=== PATIENT | female | born 1960 | race Caucasian/White ===

== ENCOUNTER 2022-03-28 10:07 | Emergency (ER) | payer OTHER ==
--- OUTSIDE RECORDS SUMMARY | 2022-03-28 10:13 | XMS REPORT | Continuity of Care Document ---
:1960 Author Organization [facility] [place] t Address [address] [place] [address] Care Team Providers Name Role Phone Homero Burnett Primary Care Physician DR GODWIN RIBERA Attending Clinician Unavailable Radiology Attending Clinician Unavailable RADIOLOGY Attending Clinician Unavailable EMILIANO THOMPSON Attending Clinician Unavailable Emiliano Thompson NP Attending Clinician DELL MONTALVO Attending Clinician Unavailable Dell Martinez Attending Clinician [phone] Memo Damon MD Attending Clinician MEMO DAMON Attending Clinician Unavailable Gwen Ingram MA Attending Clinician Unavailable Vinh Cedillo MD Attending Clinician [phone] Kendal Blanc MD Attending Clinician MD KENDAL BLANC Attending Clinician Unavailable DOROTHEA CURRIE Attending Clinician Unavailable Ugo Boles Attending Clinician Unavailable DR GODWIN RIBERA Admitting Clinician Unavailable KATHRYN ACUÑA Admitting Clinician Unavailable EMILIANO THOMPSON Admitting Clinician Unavailable KENDAL BLANC Admitting Clinician Unavailable MD KENDAL BLANC Admitting Clinician Unavailable Ugo Boles Admitting Clinician Unavailable Payers Payer Name Policy Type Policy Number Effective Date Expiration Date María carrizales [id number] 1959 00:00:00 [id number] 1959 00:00:00 SANDI SALDIVAR [id number] 2017 00:00:00 Problems Condition Condition Condition Status Onset Resolution Last Treating Co mments Source Name Details Category Date Date Treatment Clinician Date Shortness Shortness Disease Active 2020-07 [facility] breath [facility] Anxiety Anxiety Disease Active [facility] and and 01-29 [place] [facility] Hyperchole Hyperchole Disease Active U nivers sterolemia sterolemia 01-29 it y of 00:00: [address] Hypothyroi Hypothyroi Disease Active U nivers d d 01-29 ity of 00:00: [address] Allergies, Adverse Reactions, Alerts Allergy Allergy Status Severity Reaction(s) Onset Inactive Treating Comm ents Source Name Type Date Date Clinician No Known DA Active [facility] ([facility]F/LI V/SA) NO KNOWN Drug Active Univers ALLERGIE Class ity of S [facility] Social History Social Habit Start Date Stop Date Quantity Comments Source History [facility] University o f Alcohol Std Drinks [facility] History [facility] o f Alcohol [facility]inge [facility] Exposure to Not sure [place] of SARS-CoV-2 (event) [facility] History of tobacco Cigarette Smoker University of use [facility] Alcohol intake 2021-10-08 2021-10-08 0 /d University of 00:00:00 00:00:00 [facility] Alcohol Comment 2016-01-30 2016-01-30 rarely Universit y of 00:00:00 00:00:00 [facility] Cigarettes smoked 2016-01-30 2016-01-30 Univers ity of current (pack per 00:00:00 00:00:00 [facility] ) - Reported Branch Tobacco use and 2016-01-30 2016-01-30 Never used Universit y of exposure 00:00:00 00:00:00 [facility] Sex Ass[birth year] At [birth year] [facility] 00:[facility] Smoking Status Start Date Stop Date Source Tobacco smoking consumption Meth [facility] unknown Never smoker [facility] orinm (LUF/DERRICK/SA) Current every day smoker 2016-01-30 00:00:00 Uni versity of [facility] Medications Ordered Filled Start Stop Current Ordering Indication Dosage Frequency Signature Comments Components Source Medication Medication Date Date Medication? Clinician (SIG) Name Name iopamidol 2021- No [id number] 100mL 100 mL, Univers (ISOVUE 10-23-18 Intravenou ity o f 370-500 mL) 21:30: 20:17 s, ONCE, 1 [place] injection 00 :00 dose, On Medica l 100 mL Mon Branch 10/23/21 at 1630, Routine amoxicillin 2021- No [id number] 1{tbl} Take 1 Univers -clavulanat 10-09 04-15 tablet by it y of e 875-125 00:00: 04:59 mouth [place] mg per 00 :00 every 12 Medical tablet (twelve) Branch hours for 10 days. azithromyci 2021- No [id number] 500mg Take 1 Univers n 500 mg 10-09 04-10 tablet by ity o f tablet 00:00: 04:59 mouth [place] 00 :00 daily for Medical 5 days. Branch amoxicillin 2021- No 1{tbl} 1 tablet, Univers -clavulanat 10-08 04-03 Oral, ity of e 23:30: 23:01 ONCE, 1 [place] (AUGMENTIN) 00 :00 dose, On Medi hannah 875-125 mg [place] 10/08/21 [facility] per tablet at 1830, 1 tablet Routine
Reason for Anti-Infec tive: Documented Infection< br>Documen karyn Infection Site: Respirator y
Durat ion of Therapy: 7 days azithromyci 2021- No 500mg 500 mg, U nivers n 4- 04-03 Oral, ity of (ZITHROMAX) 23:30: 23:01 ONCE, 1 [place] tablet 500 00 :00 dose, On Medic al mg [place] 10/08/21 Branch at 1830, MARGARET
Re ason for Anti-Infec tive: Documented Infection< br>Documen karyn Infection Site: Respirator y
Durat ion of Therapy: 7 days HYDROcodone 2021- No 1{tbl} 1 tablet, Univers -acetaminop 10-0803 Oral, ity of hen (NORCO) 23:30: 23:21 ONCE, 1 [place] 10-325 mg 00 :00 dose, On Medica l tablet 1 [place] 10/08/21 Branc h tablet at 1830, Routine ondansetron 2021- No 4mg 4 mg, Slow Univers (ZOFRAN 10-08 IV Push, ity of (PF)) 21:00: 21:37 ONCE, 1 [place] injection 4 00 :00 dose, On Medi hannah mg [place] 10/08/21 Branch at 1600, MARGARET ketorolac 2021- No 30mg 30 mg, Unive rs (TORADOL) 10-08 Slow IV ity of injection 21:00: 21:37 Push, [place] 30 mg 00 :00 ONCE, 1 Medical dose, On Branch [place] 10/08/21 at 1600, Routine
adjunct psychology faculty member approving Restricted medication : EMILIANO THOMPSON tiZANidine 2021- No 2mg Take 2 mg U nivers 2 mg tablet 10-08 by mouth. it y of 14:56: 00:00 [place] 30 :00 Medical Branch magnesium 2021- No 600mg Take 600 Un casa oxide 400 10-0803 mg by ity of mg (241.3 14:54: 00:00 mouth. [place] mg 44 :00 Medical magnesium) Branch tablet amphetamine 2021- No 10mg Take 10 mg Univers -dextroamph 10-08-03 by mouth. it y of etamine 10 14:54: 00:00 [place] mg 24 hr 02 :00 Medical capsule Branch acetaminoph 2021- No [id number] 1{tbl} Take 1 U nivers en-codeine 10-08 04-11 tablet by ity of (TYLENOL-CO 00:00: 04:59 [place] DEINE #4) 00 :00 every 6 Medical 300-60 mg (six) Branch tablet hours as needed for Pain for up to 7 days. Indication s: acute pain ketorolac 2021- No [id number] 60mg Un casa (TORADOL) 10-07 ity of injection 22:00: 21:02 [place] 60 mg 00 :00 Medical Branch ketorolac 2021- No [id number] 60mg 60 mg, Univers (TORADOL) 10-07 Intramuscu ity of injection 22:00: 21:02 lar, ONCE, [place] 60 mg 00 :00 1 dose, On Medical 10/07/21 Branch at 1700, Routine ondansetron 2021- No [id number] 4mg Univers (ZOFRAN-ODT 10-07 ity of ) 21:45: 20:49 [place] disintegrat 00 :00 Medical ing tablet Branch 4 mg ondansetron 2021- No [id number] 4mg 4 mg, Univers (ZOFRAN-ODT 10-07 Oral, ity of ) 21:45: 20:49 ONCE, 1 [place] disintegrat 00 :00 dose, On Medi hannah ing tablet 10/07/21 Bra nch 4 mg at 1645, Routine vitamin Yes 500ug Take 500 Unive rs B-12 500 4-02 mcg by ity of mcg tablet 15:24: mouth. [address] amphetamine Yes 10mg Take 10 mg Univers -dextroamph 4-02 by mouth. ity of etamine 10 15:24: [place] mg 24 hr 19 Medical capsule Branch magnesium Yes 1{tbl} Take 1 Univ ers citrate 100 4-02 tablet by ity of mg Tab 15:24: mouth. [address] Branch Saccharomyc Yes 250mg Take 250 U nivers es 4-02 mg by ity of boulardii 15:24: mouth. [place] 250 mg 19 Medical capsule Branch tiZANidine Yes 2mg Take 2 mg Un casa 2 mg tablet 4-02 by mouth. ity of 15:24: [address] vitamin 2021-0 Yes 500ug Take 500 Unive rs B-12 500 4-02 mcg by ity of mcg tablet 15:24: mouth. [place] [address] Medical Branch magnesium 2021-0 Yes 1{tbl} Take 1 Univ ers citrate 100 4-02 tablet by ity of mg Tab 15:24: mouth. [place] [address] Medical Branch Saccharomyc 0 Yes 250mg Take 250 U nivers es 4-02 mg by ity of boulardii 15:24: mouth. [place] 250 mg 19 Medical capsule Branch vitamin 2021-0 Yes 500ug Take 500 Unive rs B-12 500 4-02 mcg by ity of mcg tablet 15:24: mouth. [place] [address] Medical Branch magnesium 2021-0 Yes 1{tbl} Take 1 Univ ers citrate 100 4-02 tablet by ity of mg Tab 15:24: mouth. [address] Branch Saccharomyc 0 Yes 250mg Take 250 U nivers es 4-02 mg by ity of boulardii 15:24: mouth. [place] 250 mg 19 Medical capsule Branch vitamin 0 Yes 500ug Take 500 Unive rs B-12 500 4-02 mcg by ity of mcg tablet 15:24: mouth. [place] [address] Medical Branch magnesium 2021-0 Yes 1{tbl} Take 1 Univ ers citrate 100 4-02 tablet by ity of mg Tab 15:24: mouth. [place] [address] Medical Branch Saccharomyc 0 Yes 250mg Take 250 U nivers es 4-02 mg by ity of boulardii 15:24: mouth. [place] 250 mg 19 Medical capsule Branch vitamin 2021-0 Yes 500ug Take 500 Unive rs B-12 500 4-02 mcg by ity of mcg tablet 15:24: mouth. [place] [address] Medical [place] magnesium 2021-0 Yes 1{tbl} Take 1 Univ ers citrate 100 4-02 tablet by ity of mg Tab 15:24: mouth. [place] [address] Medical Branch Saccharomyc 0 Yes 250mg Take 250 U nivers es 4-02 mg by ity of boulardii 15:24: mouth. [place] 250 mg 19 Medical capsule Branch Nitrofurant 2021-0 Yes [id number] 100mg Take 1 Univers oin&Nit. 4-02 capsule by ity o f Macrocryst 00:00: mouth 2 [place] (MACROBID) 00 (two) Medical 100 mg times Branch capsule daily. naproxen 2021-0 Yes [id number] 500mg Take 1 U nivers 500 mg 4-02 tablet by ity of tablet 00:00: mouth 2 (two) Medical times Branch daily with meals. Nitrofurant 2021-0 Yes [id number] 100mg Take 1 Univers oin&Nit. 4-02 capsule by ity o f Macrocryst 00:00: mouth 2 [place] (MACROBID) 00 (two) Medical 100 mg times Branch capsule daily. naproxen 2021-0 Yes [id number] 500mg Take 1 U nivers 500 mg 4-02 tablet by ity of tablet 00:00: mouth 2 (two) Medical times Branch daily with meals. Nitrofurant 2021-0 Yes [id number] 100mg Take 1 Univers oin&Nit. 4-02 capsule by ity o f Macrocryst 00:00: mouth 2 [place] (MACROBID) 00 (two) Medical 100 mg times Branch capsule daily. naproxen 2021-0 Yes [id number] 500mg Take 1 U nivers 500 mg 4-02 tablet by ity of tablet 00:00: mouth 2 (two) Medical times Branch daily with meals. Nitrofurant 2021-0 Yes [id number] 100mg Take 1 Univers oin&Nit. 4-02 capsule by ity o f Macrocryst 00:00: mouth 2 [place] (MACROBID) 00 (two) Medical 100 mg times Branch capsule daily. naproxen 2021-0 Yes [id number] 500mg Take 1 U nivers 500 mg 4-02 tablet by ity of tablet 00:00: mouth (two) Medical times Branch daily with meals. Nitrofurant 2021-0 Yes [id number] 100mg Take 1 Univers oin&Nit. 4-02 capsule by ity o f Macrocryst 00:00: mouth 2 [place] (MACROBID) 00 (two) Medical 100 mg times Branch capsule daily. naproxen 2021-0 Yes [id number] 500mg Take 1 U nivers 500 mg 4-02 tablet by ity of tablet 00:00: mouth 2 (two) Medical times Branch daily with meals. ipratropium 2021-0 Yes INHALE 3 Un casa -albuteroL 3-21 ML BY ity of 0.5 mg-3 00:00: NEBULIZATI [place] mg(2.5 mg 00 ON 4 TIMES Medi hannah base)/3 mL A DAY Branc h nebulizer NEEDED solution montelukast 2-0 Yes 10mg Take 10 mg Univers 10 mg 3-21 by mouth ity of tablet 00:00: at [place] 00 bedtime. Medical Branch ipratropium 2-0 Yes INHALE 3 Un casa -albuteroL 3-21 ML BY ity of 0.5 mg-3 00:00: NEBULIZATI [place] mg(2.5 mg 00 ON 4 TIMES Medi hannah base)/3 mL A DAY Branc h nebulizer NEEDED solution montelukast 2-0 Yes 10mg Take 10 mg Univers 10 mg 3-21 by mouth ity of tablet 00:00: at [place] 00 bedtime. Medical Branch ipratropium 2-0 Yes INHALE 3 Un casa -albuteroL 3-21 ML BY ity of 0.5 mg-3 00:00: NEBULIZATI [place] mg(2.5 mg 00 ON 4 TIMES Medi hannah base)/3 mL A DAY Branc h nebulizer NEEDED solution montelukast 2-0 Yes 10mg Take 10 mg Univers 10 mg 3-21 by mouth ity of tablet 00:00: at [place] 00 bedtime. Medical Branch ipratropium 2-0 Yes INHALE 3 Un casa -albuteroL 3-21 ML BY ity of 0.5 mg-3 00:00: NEBULIZATI [place] mg(2.5 mg 00 ON 4 TIMES Medi hannah base)/3 mL A DAY Branc h nebulizer NEEDED solution montelukast 2-0 Yes 10mg Take 10 mg Univers 10 mg 3-21 by mouth ity of tablet 00:00: at [place] 00 bedtime. Medical Branch ipratropium 2-0 Yes INHALE 3 Un casa -albuteroL 3-21 ML BY ity of 0.5 mg-3 00:00: NEBULIZATI [place] mg(2.5 mg 00 ON 4 TIMES Medi hannah base)/3 mL A DAY Branc h nebulizer NEEDED solution montelukast 2-0 Yes 10mg Take 10 mg Univers 10 mg 3-21 by mouth ity of tablet 00:00: at [place] 00 bedtime. Medical Branch Cholecalcif 2021-0 Yes TAKE 1 Univ ers aline, 3-10 CAPSULE BY ity of Vitamin D3, 00:00: MOUTH [place] 1,250 mcg 00 EVERY WEEK Medi hannah (50,000 Branch unit) capsule metformin 2-0 Yes 500mg Take 500 Uni vers ER 500 mg 3-10 mg by ity of 24 hr 00:00: mouth [place] tablet 00 daily. Medical Branch Cholecalcif 2021-0 Yes TAKE 1 Univ ers aline, 3-10 CAPSULE BY ity of Vitamin D3, 00:00: MOUTH [place] 1,250 mcg 00 EVERY WEEK Medi hannah (50,000 Branch unit) capsule metformin 2-0 Yes 500mg Take 500 Uni vers ER 500 mg 3-10 mg by ity of 24 hr 00:00: mouth [place] tablet 00 daily. Medical Branch Cholecalcif 0 Yes TAKE 1 Univ ers aline, 3-10 CAPSULE BY ity of Vitamin D3, 00:00: MOUTH [place] 1,250 mcg 00 EVERY WEEK Medi hannah (50,000 Branch unit) capsule metformin 2-0 Yes 500mg Take 500 Uni vers ER 500 mg 3-10 mg by ity of 24 hr 00:00: mouth [place] tablet 00 daily. Medical Branch Cholecalcif 2021-0 Yes TAKE 1 Univ ers aline, 3-10 CAPSULE BY ity of Vitamin D3, 00:00: MOUTH [place] 1,250 mcg 00 EVERY WEEK Medi hannah (50,000 Branch unit) capsule metformin 2-0 Yes 500mg Take 500 Uni vers ER 500 mg 3-10 mg by ity of 24 hr 00:00: mouth [place] tablet 00 daily. Medical Branch Cholecalcif 2021-0 Yes TAKE 1 Univ ers aline, 3-10 CAPSULE BY ity of Vitamin D3, 00:00: MOUTH [place] 1,250 mcg 00 EVERY WEEK Medi hannah (50,000 Branch unit) capsule metformin 2-0 Yes 500mg Take 500 Uni vers ER 500 mg 3-10 mg by ity of 24 hr 00:00: mouth [place] tablet 00 daily. Medical Branch tadalafiL 5 2021-0 Yes 5mg Take 5 mg U nivers mg tablet 2-17 by mouth ity of 00:00: daily. [place] 00 Medical Branch tadalafiL 5 2021-0 Yes 5mg Take 5 mg U nivers mg tablet 2-17 by mouth ity of 00:00: daily. [facility] tadalafiL 5 Yes 5mg Take 5 mg U nivers mg tablet 2-17 by mouth ity of 00:00: daily. [facility] tadalafiL 5 Yes 5mg Take 5 mg U nivers mg tablet 2-17 by mouth ity of 00:00: daily. [facility] tadalafiL 5 0 Yes 5mg Take 5 mg U nivers mg tablet 2-17 by mouth ity of 00:00: daily. [facility] BREZTRI Yes INHALE 2 Univer s AEROSPHERE 1-27 PUFFS BY ity o f 160-9-4.8 00:00: MOUTH [place] mcg/actuati 00 TWICE A Medic al on Branch BREZTRI Yes INHALE 2 Univer s AEROSPHERE 1-27 PUFFS BY ity o f 160-9-4.8 00:00: MOUTH [place] mcg/actuati 00 TWICE A Medic al on Branch BREZTRI Yes INHALE 2 Univer s AEROSPHERE 1-27 PUFFS BY ity o f 160-9-4.8 00:00: MOUTH [place] mcg/actuati 00 TWICE A Medic al on Branch BREZTRI Yes INHALE 2 Univer s AEROSPHERE 1-27 PUFFS BY ity o f 160-9-4.8 00:00: MOUTH [place] mcg/actuati 00 TWICE A Medic al on Branch BREZTRI Yes INHALE 2 Univer s AEROSPHERE 1-27 PUFFS BY ity o f 160-9-4.8 00:00: MOUTH [place] mcg/actuati 00 TWICE A Medic al on [facility] Branch dextroamphe Yes 10mg Take 10 mg Univers tamine 10 -26 by mouth 3 ity of mg tablet 00:00: (three) [place] 00 times Medical daily. Branch dextroamphe 2021- No 10mg Take 10 mg Univers tamine 10 1-26 04-03 by mouth 3 ity of mg tablet 00:00: 00:00 (three) [place] 00 :00 times Medical daily. Branch methylPREDN 2021- No [id number] 40mg Univers ISolone sod 07-29 ity of succ 20:00: 19:19 [place] (SOLU-MEDRO 00 :00 Medical L (PF)) Branch injection 40 mg methylPREDN 2021- No [id number] 40mg 40 mg, Univers ISolone sod 07-29 Intramuscu i ty of succ 20:00: 19:19 lar, ONCE, [place] (SOLU-MEDRO 00 :00 1 dose, On Me dical L (PF)) Sat Branch injection 07/29/21 at 40 mg 1400, Routine benzonatate 0 Yes [id number] 200mg Take 2 Univers 100 mg 1-22 capsules ity of capsule 00:00: by mouth [place] 00 every 8 Medical (eight) Branch hours as needed for Cough. doxycycline 0 Yes [id number] 100mg Take 1 Univers hyclate 100 1-22 tablet by ity of mg tablet 00:00: mouth 2 [place] 00 (two) Medical times Branch daily. guaiFENesin 0 Yes [id number] 400mg Take 1 Univers 400 mg 1-22 tablet by ity of tablet 00:00: mouth [place] 00 every 4 Medical (four) Branch hours as needed for Cough. ipratropium 0 Yes [id number] .5mg Inhale 2.5 Univers 0.02 % 1-22 mL every 4 ity of nebulizer 00:00: (four) [place] solution 00 hours as Medical needed for Branch Wheezing or Shortness of Breath. levalbutero 0 Yes [id number] 1.25mg Inhale Univers l 1.25 mg/3 1-22 1.25 mg 3 ity of mL 00:00: (three) [place] nebulizer 00 times Medical solution daily. Branch methocarbam 0 Yes [id number] 500mg Take 1 Univers oL 500 mg 1-22 tablet by ity o f tablet 00:00: mouth 4 [place] 00 (four) Medical times Branch daily. predniSONE 0 Yes [id number] 40mg Take 2 Univers 20 mg 1-22 tablets by ity of tablet 00:00: mouth [place] 00 daily. Medical Branch benzonatate 2021-0 Yes [id number] 200mg Take 2 Univers 100 mg 1-22 capsules ity of capsule 00:00: by mouth [place] 00 every 8 Medical (eight) Branch hours as needed for Cough. doxycycline 2021-0 Yes [id number] 100mg Take 1 Univers hyclate 100 1-22 tablet by ity of mg tablet 00:00: mouth 2 [place] 00 (two) Medical times Branch daily. guaiFENesin 2021-0 Yes [id number] 400mg Take 1 Univers 400 mg 1-22 tablet by ity of tablet 00:00: mouth [place] 00 every 4 Medical (four) Branch hours as needed for Cough. ipratropium 2021-0 Yes [id number] .5mg Inhale 2.5 Univers 0.02 % 1-22 mL every 4 ity of nebulizer 00:00: (four) [place] solution 00 hours as Medical needed for Branch Wheezing or Shortness of Breath. levalbutero 2021-0 Yes [id number] 1.25mg Inhale Univers l 1.25 mg/3 1-22 1.25 mg 3 ity of mL 00:00: (three) [place] nebulizer 00 times Medical solution daily. Branch methocarbam 2021-0 Yes [id number] 500mg Take 1 Univers oL 500 mg 1-22 tablet by ity o f tablet 00:00: mouth 4 [place] 00 (four) Medical times Branch daily. predniSONE 2021-0 Yes [id number] 40mg Take 2 Univers 20 mg 1-22 tablets by ity of tablet 00:00: mouth [place] 00 daily. Medical Branch benzonatate 2021-0 Yes [id number] 200mg Take 2 Univers 100 mg 1-22 capsules ity of capsule 00:00: by mouth [place] 00 every 8 Medical (eight) Branch hours as needed for Cough. ipratropium 2021-0 Yes [id number] .5mg Inhale 2.5 Univers 0.02 % 1-22 mL every 4 ity of nebulizer 00:00: (four) [place] solution 00 hours as Medical needed for Branch Wheezing or Shortness of Breath. levalbutero 2021-0 Yes [id number] 1.25mg Inhale Univers l 1.25 mg/3 1-22 1.25 mg 3 ity of mL 00:00: (three) [place] nebulizer 00 times Medical solution daily. Branch methocarbam 2021-0 Yes [id number] 500mg Take 1 Univers oL 500 mg 1-22 tablet by ity o f tablet 00:00: mouth 4 [place] 00 (four) Medical times Branch daily. predniSONE 2022-0 Yes [id number] 40mg Take 2 Univers 20 mg 1-22 tablets by ity of tablet 00:00: mouth [place] 00 daily. Medical Branch benzonatate 2-0 Yes [id number] 200mg Take 2 Univers 100 mg 1-22 capsules ity of capsule 00:00: by mouth [place] 00 every 8 Medical (eight) Branch hours as needed for Cough. ipratropium 2021-0 Yes [id number] .5mg Inhale 2.5 Univers 0.02 % 1-22 mL every 4 ity of nebulizer 00:00: (four) [place] solution 00 hours as Medical needed for Branch Wheezing or Shortness of Breath. levalbutero 2021-0 Yes [id number] 1.25mg Inhale Univers l 1.25 mg/3 1-22 1.25 mg 3 ity of mL 00:00: (three) [place] nebulizer 00 times Medical solution daily. Branch methocarbam 2021-0 Yes [id number] 500mg Take 1 Univers oL 500 mg 1-22 tablet by ity o f tablet 00:00: mouth 4 [place] 00 (four) Medical times Branch daily. predniSONE 2021-0 Yes [id number] 40mg Take 2 Univers 20 mg 1-22 tablets by ity of tablet 00:00: mouth [place] 00 daily. Medical Branch benzonatate 2021-0 Yes [id number] 200mg Take 2 Univers 100 mg 1-22 capsules ity of capsule 00:00: by mouth [place] 00 every 8 Medical (eight) Branch hours as needed for Cough. ipratropium 2021-0 Yes [id number] .5mg Inhale 2.5 Univers 0.02 % 1-22 mL every 4 ity of nebulizer 00:00: (four) [place] solution 00 hours as Medical needed for Branch Wheezing or Shortness of Breath. levalbutero 2-0 Yes [id number] 1.25mg Inhale Univers l 1.25 mg/3 1-22 1.25 mg 3 ity of mL 00:00: (three) [place] nebulizer 00 times Medical solution daily. Branch methocarbam 2021-0 Yes [id number] 500mg Take 1 Univers oL 500 mg 1-22 tablet by ity o f tablet 00:00: mouth 4 [place] 00 (four) Medical times Branch daily. predniSONE 2021-0 Yes [id number] 40mg Take 2 Univers 20 mg 1-22 tablets by ity of tablet 00:00: mouth [place] 00 daily. Medical Branch benzonatate 0 Yes [id number] 200mg Take 2 Univers 100 mg 1-22 capsules ity of capsule 00:00: by mouth [place] 00 every 8 Medical (eight) Branch hours as needed for Cough. ipratropium 0 Yes [id number] .5mg Inhale 2.5 Univers 0.02 % 1-22 mL every 4 ity of nebulizer 00:00: (four) [place] solution 00 hours as Medical needed for Branch Wheezing or Shortness of Breath. levalbutero 0 Yes [id number] 1.25mg Inhale Univers l 1.25 mg/3 1-22 1.25 mg 3 ity of mL 00:00: (three) [place] nebulizer 00 times Medical solution daily. Branch methocarbam Yes [id number] 500mg Take 1 Univers oL 500 mg 1-22 tablet by ity o f tablet 00:00: mouth 4 [place] 00 (four) Medical times Branch daily. predniSONE Yes [id number] 40mg Take 2 Univers 20 mg 1-22 tablets by ity of tablet 00:00: mouth [place] 00 daily. Medical Branch doxycycline 2021- No [id number] 100mg Take 1 Univers hyclate 100 -22 04-03 tablet by it y of mg tablet 00:00: 00:00 mouth 2 [place] 00 :00 (two) Medical times Branch daily. guaiFENesin 2021- No [id number] 400mg Take 1 Univers 400 mg 1-22 04-03 tablet by ity of tablet 00:00: 00:00 mouth [place] 00 :00 every 4 Medical (four) Branch hours as needed for Cough. ipratropium 0 2021- No [id number] .5mg Inhale 2.5 Univers 0.02 % 1-22 01-22 mL every 4 ity of nebulizer 00:00: 00:00 (four) [place] solution 00 :00 hours as Medical needed for Branch Wheezing or Shortness of Breath. levalbutero 2021- No [id number] 1.25mg Inhale Univers l 1.25 mg/3 07-29 1.25 mg 3 it y of mL 00:00: 00:00 (three) [place] nebulizer 00 :00 times Medical solution daily. [place] predniSONE 2021- No [id number] 40mg Take 2 Univers 20 mg 07-29 tablets by ity of tablet 00:00: 00:00 mouth [place] 00 :00 daily for Medical 5 days. Branch doxycycline 2021- No [id number] 100mg Take 1 Univers hyclate 100 07-29 tablet by it y of mg tablet 00:00: 00:00 mouth 2 [place] 00 :00 (two) Medical times Branch daily for 10 days. benzonatate 2021- No [id number] 200mg Take 2 Univers 100 mg 07-29 capsules ity of capsule 00:00: 00:00 by mouth [place] 00 :00 every 8 Medical (eight) Branch hours as needed for Cough. guaiFENesin 2021- No [id number] 400mg Take 1 Univers 400 mg 07-29 tablet by ity of tablet 00:00: 00:00 mouth [place] 00 :00 every 4 Medical (four) Branch hours as needed for Cough. methocarbam 2021- No [id number] 500mg Take 1 Univers oL 500 mg 07-29 tablet by ity of tablet 00:00: 00:00 mouth 4 [place] 00 :00 (four) Medical times Branch daily. fluticasone 2020-07 No 2{puff} Q.5D Inhale 2 Methodi propion-joseph 0-27 11-[address] meteroL 00:00: 05:59 (two) [facility]osp[facility] (Advair 00 :00 times a l HFA) 115-21 day for 30 mcg/actuati days. on inhaler fluticasone 2020-07 No 2{puff} Q.5D Inhale 2 Methodi propion-joseph 0-27 11-[address] meteroL 00:00: 05:59 (two) Hospita (Advair 00 :00 times a l HFA) 115-21 day for 30 mcg/actuati days. on inhaler desvenlafax 2020-07 Yes 100mg QD Take 100 M ethodi ine 0-[address] (PRISTIQ) 13:42: mouth [facility]osp[facility] 100 MG 24 06 daily. l hr tablet albuterol 2020-07 Yes 2.5mg Q.[id number] Take 2.5 Methodi sulfate 0-[id number] (PROVENTIL) 13:42: 3D nebulizati Hospita 2.5 mg/0.5 06 on 3 l mL solution (three) for times a nebulizatio day. n albuterol 2020-07 Yes 2.5mg Q6H Take 2.5 Met hodi (ACCUNEB) 0-[address] 2.5 mg /3 13:42: nebulizati Ho spita mL (0.083 06 on every 6 l %) (six) nebulizer hours as solution needed for wheezing. ALPRAZolam 2020-07 Yes 1mg Q.[id number] Take 1 mg [facility] (XANAX) 1 0-17 [id number] by mouth [address] MG tablet 13:42: 3D (three) Hospi ta 06 times a l day as needed for anxiety. dextroamphe 2020-07 Yes 10mg Q.[id number] Take 10 mg [facility] tamine 0-17 [id number] by mouth 3 s t (DEXTROSTAT 13:42: 3D (three) Hos jeovany ) 10 MG 06 times a l tablet day. pitavastati 2020-07 Yes 4mg QD Take 4 mg M ethodi n calcium 0-[address] (LIVALO) 2 13:42: daily. Hospi ta mg tablet 06 l montelukast 2020-07 Yes 10mg Take 10 mg [facility] (SINGULAIR) 0-[address] 10 mg 13:42: as needed. Hospit a tablet 06 l COQ10, 2020-07 Yes Take by [facility] LIPOSOMAL 0-[address] UBIQUINOL, 13:42: Hospita ORAL 06 l cholecalcif 2020-07 Yes 5000U QD Take 5,000 [facility] aline, 0-[address] vitamin D3, 13:42: mouth Hospi ta 1,000 unit 06 nightly. l tablet acetylcyste 2020-07 Yes 200mg QD Take 200 M ethodi ine (NAC 0-[address] ORAL) 13:42: mouth Hospita 06 nightly. l magnesium 2020-07 Yes 1{tbl} QD Take 1 Meth asiya citrate 100 0-[address] mg tablet 13:42: mouth Hospita 06 nightly. l desvenlafax 2020-07 Yes 100mg QD Take 100 M ethodi ine 0-[address] (PRISTIQ) 13:42: mouth Hospita 100 MG 24 06 daily. l hr tablet albuterol 2020-07 Yes 2.5mg Q.[id number] Take 2.5 [facility] sulfate 0-[id number] (PROVENTIL) 13:42: 3D nebulizati Hospita 2.5 mg/0.5 06 on 3 l mL solution (three) for times a nebulizatio day. n albuterol 2020-07 Yes 2.5mg Q6H Take 2.5 Met hodi (ACCUNEB) 0-[address] 2.5 mg /3 13:42: nebulizati Ho spita mL (0.083 06 on every 6 l %) (six) nebulizer hours as solution needed for wheezing. ALPRAZolam 2020-07 Yes 1mg Q.[id number] Take 1 mg [facility] (XANAX) 1 0-17 [id number] by mouth [address] MG tablet 13:42: 3D (three) Hospi ta 06 times a l day as needed for anxiety. dextroamphe 2020-07 Yes 10mg Q.[id number] Take 10 mg [facility] tamine 0-17 [id number] by mouth 3 s t (DEXTROSTAT 13:42: 3D (three) Hos jeovany ) 10 MG 06 times a l tablet day. pitavastati 2020-07 Yes 4mg QD Take 4 mg M ethodi n calcium 0-[address] (LIVALO) 2 13:42: daily. Hospi ta mg tablet 06 l montelukast 2020-07 Yes 10mg Take 10 mg [facility] (SINGULAIR) 0-[address] 10 mg 13:42: as needed. Hospit a tablet 06 l COQ10, 2020-07 Yes Take by [facility] LIPOSOMAL 0-[address] UBIQUINOL, 13:42: Hospita ORAL 06 l cholecalcif 2020-07 Yes 5000U QD Take 5,000 [facility] aline, 0-[address] vitamin D3, 13:42: mouth Hospi ta 1,000 unit 06 nightly. l tablet acetylcyste 2020-07 Yes 200mg QD Take 200 M ethodi ine (NAC 0-[address] ORAL) 13:42: mouth Hospita 06 nightly. l magnesium 2020-07 Yes 1{tbl} QD Take 1 Meth asiya citrate 100 0-[address] mg tablet 13:42: mouth Hospita 06 nightly. l albuterol 2020-07- No 2{puff} Q6H Inhale 2 [facility] (PROAIR 0-17 11-[address] HFA) 90 00:00: 05:59 every 6 Hospit a mcg/actuati 00 :00 (six) l on inhaler hours as needed for wheezing for up to 30 days. albuterol 2020-07 No 2{puff} Q6H Inhale 2 [facility] (PROAIR 0-17 11-[address] HFA) 90 00:00: 05:59 every 6 Hospit a mcg/actuati 00 :00 (six) l on inhaler hours as needed for wheezing for up to 30 days. predniSONE 2020-07- No Take 4 Meth [facility] (DELTASONE) 0-17 11-16 tabs for 3 s t 10 mg 00:00: 05:59 days, 3 Hospita tablet 00 :00 tabs for 3 l days, 2 tabs for 3 days, 1 tabs for 3 days predniSONE 2020-07- No Take 4 Meth [facility] (DELTASONE) 0-17 11-16 tabs for 3 s t 10 mg 00:00: 05:59 days, 3 Hospita tablet 00 :00 tabs for 3 l days, 2 tabs for 3 days, 1 tabs for 3 days fluticasone 2020-07- No QD Inhale 1 M ethodi furoate-maria luisa 0-17 10-27 inhalation s t anteroL 00:00: 00:00 s daily Hospit a (Breo 00 :00 for 30 l Ellipta) days. 200-25 mcg/dose blister with device powder for inhalation fluticasone 2020-07- No QD Inhale 1 M ethodi furoate-maria luisa 0-17 10-27 inhalation s t anteroL 00:00: 00:00 s daily Hospit a (Breo 00 :00 for 30 l Ellipta) days. 200-25 mcg/dose blister with device powder for inhalation benzonatate 2020-07- No 100mg Q.[id number] Take 1 [facility] (TESSALON) 0-17 10-[id number] 100 MG 00:00: 04:59 3D (100 mg Hospita capsule 00 :00 total) by l mouth 3 (three) times a day as needed for cough for up to 7 days. benzonatate 2020-07- No 100mg Q.[id number] Take 1 [facility] (TESSALON) 0-17 10- [id number] capsule st 100 MG 00:00: 04:59 3D (100 mg Hospita capsule 00 :00 total) by l mouth 3 (three) times a day as needed for cough for up to 7 days. co-enzyme 2019-07 Yes 200mg Take 200 Uni vers Q-10 30 mg 1-27 mg by ity of capsule 16:37: mouth. [address] co-enzyme 2019-07 Yes 200mg Take 200 Uni vers Q-10 30 mg 1-27 mg by ity of capsule 16:37: mouth. [address] co-enzyme 2019-07 Yes 200mg Take 200 Uni vers Q-10 30 mg 1-27 mg by ity of capsule 16:37: mouth. [address] co-enzyme 2019-07 Yes 200mg Take 200 Uni vers Q-10 30 mg 1-27 mg by ity of capsule 16:37: mouth. [address] co-enzyme 2019-07 Yes 200mg Take 200 Uni vers Q-10 30 mg 1-27 mg by ity of capsule 16:37: mouth. [address] co-enzyme 2019-07 Yes 200mg Take 200 Uni vers Q-10 30 mg 1-27 mg by ity of capsule 16:37: mouth. [address] magnesium 2019-07 Yes 600mg Take 600 Uni vers oxide 400 1-27 mg by ity of mg (241.3 16:37: mouth. [place] mg 23 Medical magnesium) Branch tablet magnesium 2019-07 Yes 600mg Take 600 Uni vers oxide 400 1-27 mg by ity of mg (241.3 16:37: mouth. [place] mg 23 Medical magnesium) Branch tablet albuterol 2019-07 Yes [id number] 2{puff} Inhale 2 Univers 90 1-27 Puffs ity of mcg/actuati 00:00: every 4 [place] as on inhaler 00 (four) Medical hours as Branch needed for Wheezing or Shortness of Breath. benzonatate 2019-07 Yes [id number] 100mg Take 1 Univers 100 mg 1-27 capsule by ity of capsule 00:00: mouth 3 (three) Medical times Branch daily as needed for Cough. albuterol 2019-07 Yes [id number] 2{puff} Inhale 2 Univers 90 1-27 Puffs ity of mcg/actuati 00:00: every 4 [place] as on inhaler 00 (four) Medical hours as Branch needed for Wheezing or Shortness of Breath. benzonatate 2019-07 Yes [id number] 100mg Take 1 Univers 100 mg 1-27 capsule by ity of capsule 00:00: mouth 3 (three) Medical times Branch daily as needed for Cough. albuterol 2019-07 Yes [id number] 2{puff} Inhale 2 Univers 90 1-27 Puffs ity of mcg/actuati 00:00: every 4 [place] as on inhaler 00 (four) Medical hours as Branch needed for Wheezing or Shortness of Breath. benzonatate 2019-07 Yes [id number] 100mg Take 1 Univers 100 mg 1-27 capsule by ity of capsule 00:00: mouth 3 (three) Medical times Branch daily as needed for Cough. albuterol 2019-07 Yes [id number] 2{puff} Inhale 2 Univers 90 1-27 Puffs ity of mcg/actuati 00:00: every 4 [place] as on inhaler 00 (four) Medical hours as Branch needed for Wheezing or Shortness of Breath. benzonatate 2019-07 Yes [id number] 100mg Take 1 Univers 100 mg 1-27 capsule by ity of capsule 00:00: mouth 3 (three) Medical times Branch daily as needed for Cough. albuterol 2019-07 Yes [id number] 2{puff} Inhale 2 Univers 90 1-27 Puffs ity of mcg/actuati 00:00: every 4 [place] as on inhaler 00 (four) Medical hours as Branch needed for Wheezing or Shortness of Breath. benzonatate 2019-07 Yes [id number] 100mg Take 1 Univers 100 mg 1-27 capsule by ity of capsule 00:00: mouth 3 (three) Medical times Branch daily as needed for Cough. albuterol 2019-07 Yes [id number] 2{puff} Inhale 2 Univers 90 1-27 Puffs ity of mcg/actuati 00:00: every 4 [place] as on inhaler 00 (four) Medical hours as Branch needed for Wheezing or Shortness of Breath. benzonatate 2019-07 Yes [id number] 100mg Take 1 Univers 100 mg 1-27 capsule by ity of capsule 00:00: mouth 3 (three) Medical times Branch daily as needed for Cough. cetirizine 2019-07 Yes 10mg Take 10 mg U nivers 10 mg 1-20 by mouth ity of tablet 00:00: daily. [place] [facility] Branch cetirizine 2019-07 Yes 10mg Take 10 mg U nivers 10 mg 1-20 by mouth ity of tablet 00:00: daily. [place] [facility] Branch cetirizine 2019-07- No 10mg Take 10 mg Univers 10 mg 1-20 04-03 by mouth ity of tablet 00:00: 00:00 daily. [place] 00 :00 Medical Branch methylPREDN 2021- No Take by Un casa ISolone 9-19 -22 mouth ity of (MEDROL, 00:00: 00:00 [place] 4 mg 00 :00 CTIONS. Medica l tablets follow Branch package directions budesonide- Yes INHALE 2 Un casa formoterol 1-26 PUFFS 2 ity of (SYMBICORT) 00:00: TIMES A [place] as 160-4.5 00 DAY Medical mcg/actuati Branch on inhaler thyroid Yes 15mg Take 1 Univers (ARMOUR 1-26 tablet by ity of THYROID) 15 00:00: mouth [place] mg tablet 00 every Medical morning. Branch Pitavastati Yes 1{tbl} Take 1 Un casa n (LIVALO) 1-26 tablet by ity of 2 mg Tab 00:00: mouth [place] 00 every Medical morning. Branch desvenlafax Yes 100mg Take 1 Uni vers ine 1-26 tablet by ity of succinate 00:00: mouth [place] (PRISTIQ) 00 every Medical 100 mg 24 morning. Branch hr tablet ALPRAZolam Yes [id number] .5mg Take 0.5 Univers 1 mg tablet 1-26 tablets by it y of 00:00: mouth 2 [place] 00 (two) Medical times Branch daily. budesonide- Yes INHALE 2 Un casa formoterol 1-26 PUFFS 2 ity of (SYMBICORT) 00:00: TIMES A [place] as 160-4.5 00 DAY Medical mcg/actuati Branch on inhaler thyroid Yes 15mg Take 1 Univers (ARMOUR 1-26 tablet by ity of THYROID) 15 00:00: mouth [place] mg tablet 00 every Medical morning. Branch Pitavastati Yes 1{tbl} Take 1 Un casa n (LIVALO) 1-26 tablet by ity of 2 mg Tab 00:00: mouth [place] 00 every Medical morning. Branch desvenlafax Yes 100mg Take 1 Uni vers ine 1-26 tablet by ity of succinate 00:00: mouth [place] (PRISTIQ) 00 every Medical 100 mg 24 morning. Branch hr tablet ALPRAZolam Yes [id number] .5mg Take 0.5 Univers 1 mg tablet 1-26 tablets by it y of 00:00: mouth 2 [place] 00 (two) Medical times Branch daily. budesonide- Yes INHALE 2 Un casa formoterol 1-26 PUFFS 2 ity of (SYMBICORT) 00:00: TIMES A [place] as 160-4.5 00 DAY Medical mcg/actuati Branch on inhaler Pitavastati Yes 1{tbl} Take 1 Un casa n (LIVALO) 1-26 tablet by ity of 2 mg Tab 00:00: mouth [place] 00 every Medical morning. Branch desvenlafax Yes 100mg Take 1 Uni vers ine 1-26 tablet by ity of succinate 00:00: mouth [place] (PRISTIQ) 00 every Medical 100 mg 24 morning. Branch hr tablet ALPRAZolam 2017-0 Yes [id number] .5mg Take 0.5 Univers 1 mg tablet 1-26 tablets by it y of 00:00: mouth 2 (two) Medical times Branch daily. budesonide- Yes INHALE 2 Un casa formoterol 1-26 PUFFS 2 ity of (SYMBICORT) 00:00: TIMES A [place] as 160-4.5 00 DAY Medical mcg/actuati Branch on inhaler Pitavastati Yes 1{tbl} Take 1 Un casa n (LIVALO) 1-26 tablet by ity of 2 mg Tab 00:00: mouth [place] 00 every Medical morning. Branch desvenlafax Yes 100mg Take 1 Uni vers ine 1-26 tablet by ity of succinate 00:00: mouth [place] (PRISTIQ) 00 every Medical 100 mg 24 morning. Branch hr tablet ALPRAZolam Yes [id number] .5mg Take 0.5 Univers 1 mg tablet 1-26 tablets by it y of 00:00: mouth 2 (two) Medical times Branch daily. budesonide- Yes INHALE 2 Un casa formoterol 1-26 PUFFS 2 ity of (SYMBICORT) 00:00: TIMES A [place] as 160-4.5 00 DAY Medical mcg/actuati Branch on inhaler Pitavastati Yes 1{tbl} Take 1 Un casa n (LIVALO) 1-26 tablet by ity of 2 mg Tab 00:00: mouth [place] 00 every Medical morning. Branch desvenlafax Yes 100mg Take 1 Uni vers ine 1-26 tablet by ity of succinate 00:00: mouth [place] (PRISTIQ) 00 every Medical 100 mg 24 morning. Branch hr tablet ALPRAZolam Yes [id number] .5mg Take 0.5 Univers 1 mg tablet 1-26 tablets by it y of 00:00: mouth 2 (two) Medical times Branch daily. budesonide- Yes INHALE 2 Un casa formoterol 1-26 PUFFS 2 ity of (SYMBICORT) 00:00: TIMES A [place] as 160-4.5 00 DAY Medical mcg/actuati Branch on inhaler Pitavastati Yes 1{tbl} Take 1 Un casa n (LIVALO) 1-26 tablet by ity of 2 mg Tab 00:00: mouth [place] 00 every Medical morning. Branch desvenlafax Yes 100mg Take 1 Uni vers ine 1-26 tablet by ity of succinate 00:00: mouth [place] (PRISTIQ) 00 every Medical 100 mg 24 morning. Branch hr tablet ALPRAZolam Yes [id number] .5mg Take 0.5 Univers 1 mg tablet 1-26 tablets by it y of 00:00: mouth 2 [place] 00 (two) Medical times Branch daily. thyroid No 15mg Take 1 Univers (ARMOUR 1-26 04-03 tablet by ity of THYROID) 15 00:00: 00:00 [place] mg tablet 00 :00 every Medical morning. Branch cyclobenzap cyclobenzap Yes 10mg 3xD [facility] rine 10 mg rine 10 mg [place] tablet tablet Memoria l (LUF/LI V/SA) lidocaine lidocaine Yes 1 [facility] MG/MG 0.05 MG/MG [place] Medicated Medicated Memor ia Patch Patch l (LUF/LI V/SA) cyclobenzap cyclobenzap Yes 10mg 3xD orally [address] rine 10 mg rine 10 mg times per [facility] tablet tablet day as Memoria needed. l (for (LUF/LI muscle V/SA) spasms) lidocaine lidocaine Yes [address] 0.05 MG/MG 0.05 MG/MG per [place] Medicated Medicated package Me moria Patch Patch directions l as needed. (LUF/LI (leave on V/SA) most painful area for up to 12 hrs) Vital Signs Vital Name Observation Time Observation Value Comments Source Height 2022-03-21 00:09:00 165.1 CM Weight 2022-03-21 00:09:00 77.11 KG Systolic blood 2021-10-08 23:07:00 150 mm[Hg] Univer sity [facility] Diastolic blood 2021-10-08 23:07:00 80 mm[Hg] Unive [facility] Heart rate 2021-10-08 23:07:00 64 /min [facility] Body temperature 2021-10-08 23:07:00 36.61 Sherrell [facility] [place] [facility] Respiratory rate 2021-10-08 23:07:00 20 /min [facility] [place] [facility] Oxygen saturation in 2021-10-08 23:07:00 94 /min University of Arterial blood by [facility] Pulse oximetry Branch Body height 2021-10-08 18:56:00 160 cm [facility] [place] [facility] Body weight 2021-10-08 18:56:00 73.936 kg [facility] [place] [facility] BMI 2021-10-08 18:56:00 28.87 kg/m2 [facility] [place] [facility] Systolic blood 2021-10-07 20:22:00 123 mm[Hg] Univer sity of pressure [place] [facility] Diastolic blood 2021-10-07 20:22:00 77 mm[Hg] Unive rsity of pressure [place] [facility] Heart rate 2021-10-07 20:22:00 92 /min [facility] [place] [facility] Body temperature 2021-10-07 20:22:00 36.78 Sherrell [facility] [place] [facility] Respiratory rate 2021-10-07 20:22:00 18 /min [facility] [place] [facility] Body height 2021-10-07 20:22:00 167.6 cm [facility] [place] [facility] Body weight 2021-10-07 20:22:00 73.619 kg [facility] [place] [facility] BMI 2021-10-07 20:22:00 26.20 kg/m2 [facility] [place] [facility] Oxygen saturation in 2021-10-07 20:22:00 96 /min University of Arterial blood by [facility] Pulse oximetry Branch Systolic blood 2021-07-29 18:27:00 128 mm[Hg] Univer sity of pressure [place] [facility] Diastolic blood 2021-07-29 18:27:00 79 mm[Hg] Unive rsity of pressure [place] [facility] Heart rate 2021-07-29 18:27:00 86 /min [facility] [place] [facility] Body temperature 2021-07-29 18:27:00 36.56 Sherrell [facility] [place] [facility] Respiratory rate 2021-07-29 18:27:00 18 /min [facility] [place] [facility] Body height 2021-07-29 18:27:00 167.6 cm [facility] Body weight 2021-07-29 18:27:00 77.111 kg [facility] BMI 2021-07-29 18:27:00 27.44 kg/m2 [facility] Oxygen saturation in 2021-07-29 18:27:00 95 /min [facility] Arterial blood by [facility] Pulse oximetry Branch BP Systolic 2022-03-21 01:01:00 168 mm[Hg] [facility] (LUF/DERRICK/SA) BP Diastolic 2022-03-21 01:01:00 75 mm[Hg] [facility] (LUF/DERRICK/SA) Pulse Rate 2022-03-21 00:46:00 75 /min [facility] (F/DERRICK/SA) O2% BldC Oximetry 2022-03-21 00:46:00 97 % [facility] (LUF/DERRICK/SA) Body Temperature 2022-03-21 00:09:00 97 [degF] [facility] (F/DERRICK/SA) Respiratory Rate 2022-03-21 00:09:00 18 /min [facility] (LUF/DERRICK/SA) Height 2022-03-21 00:09:00 65 [in_i] [facility] (F/DERRICK/SA) Weight 2022-03-21 00:09:00 77.11 kg [facility] (LUF/DERRICK/SA) BMI (Body Mass 2022-03-21 00:09:00 28.3 kg/m2 [facility] (F/DERRICK/SA) Systolic blood 2021-04-23 16:25:40 132 mm[Hg] [facility] Diastolic blood 2021-04-23 16:25:40 70 mm[Hg] [facility] pressure Heart rate 2021-04-23 16:25:40 81 /min [facility] Body temperature 2021-04-23 16:25:40 36.61 Sherrell [facility] Respiratory rate 2021-04-23 16:25:40 21 /min [facility] Oxygen saturation in 2021-04-23 16:25:40 91 /min [facility] Arterial blood by Pulse oximetry Body weight 2021-04-21 00:09:00 77.565 kg [facility] BMI 2021-04-21 00:09:00 27.60 kg/m2 [facility] Body height 2021-04-20 16:29:00 167.6 cm [facility] Procedures Procedure Date / Time Performing Clinician Source Performed CT ABDOMEN PELVIS W 2021-10-23 20:19:14 Requisition, Paper [facility] CONTRAST [facility] Branch LIPASE 2021-10-08 21:32:00 Emiliano Thompson [facility] COMP. METABOLIC PANEL 2021-10-08 21:32:00 Emiliano Thompson [facility] ([id number]) [facility] CBC WITH DIFF 2021-10-08 21:32:00 Emiliano Thompson [facility] URINALYSIS 2021-10-08 21:32:00 Emiliano Thompson [facility] XR CHEST 2 VW 2021-10-08 20:30:00 Emiliano Thompson [facility] NOTICE OF PRIVACY 2021-10-08 18:49:42 Doctor Unassigned, [facility] PRACTICES [facility] CONSENT/REFUSAL FOR 2021-10-08 18:47:58 Doctor Unassgeorgette, [facility] DIAGNOSIS AND TREATMENT [facility] POCT URINALYSIS 2021-10-07 21:16:[facility] C-REACTIVE PROTEIN 2021-04-23 15:05:00 Solo Oneal [facility] BASIC METABOLIC PANEL 2021-04-23 09:05:00 OnealSolo reyes [facility] PROCALCITONIN 2021-04-23 09:05:00 OnealSolo reyes [facility] spital ESTIMATED GFR 2021-04-23 09:05:00 Kimmy Sparrow [facility] spital XR CHEST 1 VW PORTABLE 2021-04-22 21:52:20 Solo Oneal [facility] COVID-19 ANTI-SPIKE IGG 2021-04-22 09:10:00 Mychal Mcgregor [facility] ANTIBODY TITER [facility] COVID-19 SEROLOGY PATIENT 2021-04-22 09:10:00 Mychal Mcgregor [facility] SURVEILLANCE [place] TROPONIN 2021-04-21 02:45:00 Alix Rdz spital LACTIC ACID LEVEL, SEPSIS 2021-04-21 02:45:00 Alix Rdz [facility] - NOW AND REPEAT 2X EVERY 3 HOURS BLOOD CULTURE, AEROBIC & 2021-04-20 22:43:00 Alix Rdz [facility] ANAEROBIC TROPONIN 2021-04-20 22:42:00 Alix Rdz spital LACTIC ACID LEVEL, SEPSIS 2021-04-20 22:42:00 Alix Rdz [facility] - NOW AND REPEAT 2X EVERY 3 HOURS COVID-19 QUALITATIVE 2021-04-20 20:26:00 Alix Rdz [facility] RT-PCR CT ANGIOGRAM PE CHEST 2021-04-20 19:38:16 [facility] [place] [facility] 12-LEAD 2021-04-20 18:13:23 Alix Rdz spital XR CHEST 1 VW 2021-04-20 18:03:38 Alix Rdz spital RESPIRATORY PATHOGEN 2021-04-20 18:02:00 Alix Rdz [facility] PANEL WITH COVID-19 RT-PCR COMPREHENSIVE METABOLIC 2021-04-20 17:45:00 Alix Rdz [facility] PANEL HC COMPLETE BLD COUNT 2021-04-20 17:45:00 Alix Rdz [facility] W/AUTO DIFF TROPONIN 2021-04-20 17:45:00 Alix Rdz spital B NATRIURETIC PEPTIDE 2021-04-20 17:45:00 Alix Rdz [facility] LACTIC ACID LEVEL, SEPSIS 2021-04-20 17:45:00 Alix Rdz [facility] - NOW AND REPEAT 2X EVERY 3 HOURS ESTIMATED GFR 2021-04-20 17:45:00 Alix Rdz spital BLOOD CULTURE, AEROBIC & 2021-04-20 17:44:00 Alix Rdz [facility] ANAEROBIC ECG ED PRELIMINARY 2021-04-20 16:55:15 [facility] INTERPRETATION Plan of Care Planned Activity Planned Date Details Comments Source Future Scheduled 2022-03-07 HEPATITIS B VACCINES Met [facility] Test 13:18:29 (1 of 3 - 3-dose series) [code = HEPATITIS B VACCINES (1 of 3 - 3-dose series)] Future Scheduled 2022-03-07 COVID-19 VACCINE (#1) [facility] Test 13:18:29 [code = COVID-19 VACCINE (#1)] Future Scheduled 2022-03-07 Pneumococcal Vaccine: [facility] Test 13:18:29 Pediatrics (0 to 5 Years) and At-Risk Patients (6 to 64 Years) (1 - PCV) [code = Pneumococcal Vaccine: Pediatrics (0 to 5 Years) and At-Risk Patients (6 to 64 Years) (1 - PCV)] Future Scheduled 2022-03-07 Hepatitis C screening [facility] Test 13:18:29 (procedure) [code = 240496926] Future Scheduled 2022-03-07 Screening for [facility] Test 13:18:29 malignant neoplasm of cervix (procedure) [code = 806223776] Future Scheduled 2022-03-07 BREAST CANCER [facility] Test 13:18:29 SCREENING [code = BREAST CANCER SCREENING] Future Scheduled 2022-03-07 COLONOSCOPY SCREENING [facility] Test 13:18:29 [code = COLONOSCOPY SCREENING] Future Scheduled 2022-03-07 SHINGLES VACCINES (1 Met [facility] Test 13:18:29 of 2) [code = SHINGLES VACCINES (1 of 2)] Future Scheduled 2022-03-07 INFLUENZA VACCINE Method [facility] Test 13:18:29 [code = INFLUENZA VACCINE] Future Scheduled 2021-07-19 COVID-19 VACCINE (1) Met [facility] Test 15:35:17 [code = COVID-19 VACCINE (1)] Future Scheduled 2021-07-19 Hepatitis C screening [facility] Test 15:35:17 (procedure) [code = 185174264] Future Scheduled 2021-07-19 Screening for [facility] Test 15:35:17 malignant neoplasm of cervix (procedure) [code = 951549468] Future Scheduled 2021-07-19 BREAST CANCER [facility] Test 15:35:17 SCREENING [code = BREAST CANCER SCREENING] Future Scheduled 2021-07-19 COLONOSCOPY SCREENING [facility] Test 15:35:17 [code = COLONOSCOPY SCREENING] Future Scheduled 2021-07-19 SHINGLES VACCINES (#1) M [facility] Test 15:35:17 [code = SHINGLES VACCINES (#1)] Future Scheduled 2021-07-19 INFLUENZA VACCINE Method [facility] Test 15:35:17 [code = INFLUENZA VACCINE] Encounters Start End Encounter Admission Attending Care Care Encounter Source Date/Time Date/Time Type Type Clinicians Facility Department ID 2022-03-20 2022-03-21 OTHER 1 MIRIAN RIBERA [facility] [id number] 23:40:00 01:42:00 INJURY UNS GODWIN [place] es BODY [facility] REGION l INIT (LUF/LI V/SA) 2022-03-20 2022-03-20 PROC&TX 1 MOUNIKA [facility] [id number] 22:47:00 23:13:00 NOT GODWIN GUARDADO L ukes CARRIED N, [address] LEAVE BYPASS, ([place] [address] 2022-03-20 2022-03-20 Inpatient [facility] [id number] 00:00:00 00:00:00 BURAK LOVETTSTON [id number], [id number] l BYPASS, (LUF/[place] [address] 2022-03-20 2022-03-20 Inpatient [facility] [id number] 00:00:00 00:00:00 BONYMartin LOVETTGUARDADO [id number], [id number] BYPASS, (LUF/[place] [address] 2022-03-20 2022-03-20 Inpatient [facility] [id number] 00:00:00 00:00:00 BURAK LOVETTSTON [id number], [id number] [id number] l BYPASS, (LUF/[place] [address] 2021-10-23 2021-10-[address] [facility] [id number] Univers 14:30:12 23:59:00 Encounter [place] [id number] ity of [place] [id number] [facility] [id number] [facility] [address] Branch 2021-10-23 2021-10-23 Outpatient R RADIOLOGY [facility] [address] 4N-20 Univers 16:00:00 16:00:00 [id number] ity of [facility] 2021-10-23 2021-10-23 Outpatient R RADIOLOGY [facility] [id number] Univers 14:29:12 14:29:12 ity of [facility] 2021-10-23 2021-10-23 [facility] Radiology [facility] [id number] Univers 14:29:12 14:29:12 Encounter [place] 350.1.13.10 ity of [place] 4.2.7.2.686 [facility] [id number] [facility] [address] [place] 2021-10-19 2021-10-19 Outpatient R RADIOLOGY [facility] [id number] Univers 12:09:47 23:59:00 ity of [facility] 2021-10-19 2021-10-[address] [facility] [id number] Univers 12:09:47 23:59:00 Encounter [place] 350.1.13.10 ity of [place] 4.2.7.2.686 [facility] [id number] [facility] [address] 2021-10-19 2021-10-19 Outpatient R RADIOLOGY [facility] [id number] [id number]-20 Univers 12:15:00 12:15:00 [id number] ity of [facility] 2021-10-08 2021-10-08 Emergency X [facility], [facility] ERT [id number] Univers 13:59:00 18:22:00 EMILIANO ity of [facility] 2021-10-08 2021-10-08 Emergency [facility] [id number] Univers 13:59:00 18:22:00 Emiliano Martin [place] 350.1.13.10 ity [place]7.2.[place] [id number] [place] [id number] [place] 2021-10-07 2021-10-07 Outpatient R CIARANALLISONKENYA [facility] [id number] Univers 15:20:00 16:23:40 DELL Daniel [facility] 2021-10-07 2021-10-07 Urgent Fredrick [facility] 1.2 .840.114 [id number] Univers 15:20:00 16:23:40 Care Nelson [facility] 350.1.13.10 ity dianne [place] 4.2.7.2.686 Robb as WILLIAM?BLEA [id number] [address] OFFICE [facility] 2021-10-07 2021-10-07 Outpatient R [facility] [id number] Univers 15:20:00 15:20:00 [id number] [facility] 2021-07-29 2021-07-29 Outpatient [facility] [id number] Univers 12:40:00 13:51:54 [facility] 2021-07-29 2021-07-29 [facility] 1.2.840.114 [id number] Univers 12:40:00 13:00:00 Care [facility] 350.1.13.10 it y of [place] 4.2.7.2.686 Robb as WILLIAM?BLEA [id number] [address] 2021-05-01 2021-05-01 Telephone Juan Jose 1.2.840.1 [id number] Methodi 00:00:00 00:00:[address] 3.430.2.7 Hospit a .3.261016 l .8 2021-05-01 2021-05-01 Telephone Juan Jose 1.2.840.1 [id number] Methodi 00:00:00 00:00:[address] 3.430.2.7 Hospit a .3.756557 l .8 2021-04-20 2021-04-23 [facility] Vinh Cedilloyw in 1.2.840.1 [id number] Methodi 11:33:00 13:42:00 Encounter [place] 08145.1.[address] 3.430.2.7 Hospit a .3.670421 l .8 2021-04-20 2021-04-23 [facility] Vinh Cedillo in 1.2.840.1 [id number] Methodi 11:33:00 13:42:00 Encounter [place] 76004.1.[address] 3.430.2.7 Hospit a .3.322837 l .8 2021-03-02 2021-03-02 Outpatient Juan R CURRIE [facility] [id number] Univers 14:15:00 17:11:53 DOROTHEA ity [facility] Results Test Description Test Time Test Comments Results Result [facility] e Comments CT PELVIS W/O 2022-03-08 CONTRAST 4 00:55:19 [facility] ([facility]/)Name: NNAMDI GOMEZ : 1960 Sex: F CT Bony Pelvis Without Contrast, With Multiplanar ReconstructionsINDICATIONS: [id number]: Traumatic [id number]; fall with sacral, pelvis, and hip painTECHNIQUE: Contiguous 2 mm thickness axial images were obtained in helicalfashion through the bony pelvis. From these, coronal and sagittalreconstructions were generated.RADIATION DOSE:Total DLP: Please see CT study in PACSCTDIvol has been reviewed. It is below the limits set by the RadiationProtocol Committee (RPC).Dose reduction techniques used: Automated exposure control, adjustment of themAs and/or kVp according to patient size, standardized low-dose protocol, and/oriterative reconstruction technique.COMPARISON: None.Findings:Bones: The bones are diffusely demineralized. There is no evidence of fracture,dislocation, or focal osseous lesion. There are mild degenerative changes of thelower lumbar spine and right SI joint. Trace anterolisthesis of L4 on L5 withoutpars defects.Bowel: Visualized portions of the small bowel and large bowel are normal indiameter with normal wall thickness. There are scattered noninflamed colonicdiverticula. The appendix is normal.Vasculature: Atherosclerotic calcifications in the aorta and common iliacarteries without aneurysmal dilatation.Bladder: Well-distended and normal in appearance.The uterus is absent. No adnexal mass.Lymph nodes: No lymphadenopathy.Peritoneum/r etroperitoneum: No free fluid or fluid collection.The inferior pole the right kidney is visualized and normal in appearance.Soft tissues: No soft tissue contusion or intramuscular hematoma.IMPRESSION:No acute fracture or dislocation. No evidence of acute traumatic pathology.Other findings as described above.This final report was electronically signed by Dr Yfn Rashid MD 212:49 AMDictated By: YFN RASHIDDate: 03/21/2022 00:49 COMP. METABOLIC PANEL (44360) 2021-10-08 21:58:06 Test Item Value Reference Range Interpretation Comme nts NA (test code = 0582545012) 139 mmol/L 135-145 K (test code = 1684559273) 4.5 mmol/L 3.5-5.0 CL (test code = 1320268818) 105 mmol/L 98-108 CO2 TOTAL (test code = 28 mmol/L 23-31 3876216278) AGAP (test code = 6543514909) 2-16 BUN (test code = 7991493676) 13 mg/dL 7-23 GLUCOSE (test code = 4045942358) 87 mg/dL 70-110 CREATININE (test code = 0.72 mg/dL 0.50-1.04 8909992309) TOTAL BILI (test code = 0.6 mg/dL 0.1-1.0 3373722479) CALCIUM (test code = 1236539142) 9.7 mg/dL 8.6-10.6 T PROTEIN (test code = 6.4 g/dL 6.3-8.2 0738000840) ALBUMIN (test code = 4115028689) 4.1 g/dL 3.5-5.0 ALK PHOS (test code = 8823343819) 74 U/L 34-122 ALTv (test code = 1742-6) 16 U/L 5-35 AST(SGOT) (test code = 22 U/L 13-40 5822267455) eGFR (test code = 6146979586) mL/min/1.73m2 SUSAN (test code = SUSAN) Association of Glomerular Filtration Rate (GFR) and Staging of Kidney Disease* + +--------- + ----+| GFR (mL/min/1.73 m2) ?| With Kidney Damage ?| ?Without Kidney Damage+ +--- + +| ?>90 ?| ?Stage one ?| ? Normal ?+ +-------- + -----+| ?60-89 ?| ?Stage two ?| ? Decreased GFR ? + +--------- + ----+| ?30-59 ?| ?Stage three ?| ? Stage three ? + +--------- + ----+| ?15-29 ?| ?Stage four ? | ? Stage four ?+ +-------- + -----+| ?<15 (or dialysis) ? ?| ?Stage five ? | ? Stage five ?+ +-------- + -----+ *Each stage assumes the associated GFR level has been in effect for at least three months. ?Stages 1 to 5, with or without kidney disease, indicate chronic kidney disease. Notes: Determination of stages one and two (with eGFR >59mL/min/1.73 m2) requires estimation of kidney damage for at least three months as defined by structural or functional abnormalities of the kidney, manifested by either:Pathological abnormalities or Markers of kidney damage (including abnormalities in the composition of the blood or urine or abnormalities in imaging tests). [facility] 21[facility]57[facility]46 Test Item Value Reference Range Interpretation Comments LIPASE (test code = 2606216267) 73 U/L 0-220 Lab Interpretation (test code = Normal 10986-1) [facility] WITH [id number] 21:49:24 Test Item Value Reference Range Interpretation Comments WBC (test code = See_Comment [Automated 6690-2) message] The sy stem which generated this result transmitted reference range : 4.30 - 11.10 10*3/?L. The reference range was not used to interpret this result as normal/abnormal . RBC (test code = See_Comment [Automated 789-8) message] The sy stem which generated this result transmitted reference range : 3.93 - 5.25 10*6/?L. The reference range was not used to interpret this result as normal/abnormal . HGB (test code = 15.8 g/dL 11.6-15.0 H 718-7) HCT (test code = 47.5 % 35.7-45.2 H 4544-3) MCV (test code = 93.5 fL 80.6-95.5 787-2) MCH (test code = 31.1 pg 25.9-32.8 785-6) MCHC (test code = 33.3 g/dL 31.6-35.1 786-4) RDW-SD (test code = 46.0 fL 39.0-49.9 86997-2) RDW-CV (test code = 13.4 % 12.0-15.5 788-0) PLT (test code = See_Comment [Automated 777-3) message] The sy stem which generated this result transmitted reference range : 166 - 358 10*3/ ?L. The reference r aiedn was not used to interpret this result as normal/abnormal . MPV (test code = 10.4 fL 9.5-12.9 12459-9) NRBC/100 WBC (test See_Comment [Automat ed code = 3025353941) message] The system which generated this result transmitted reference range : 0.0 - 10.0 /100 WBCs. The refer ence range was not u sed to interpret th is result as normal/abnormal . NRBC x10^3 (test code <0.01 See_Comment [Auto mated = 3793113878) message] The s ystem which generated this result transmitted reference range : 10*3/?L. The reference range was not used to interpret this result as normal/abnormal . GRAN MAT (NEUT) % 64.0 % (test code = 770-8) IMM GRAN % (test code 0.20 % = 0678437566) LYMPH % (test code = 28.9 % 736-9) MONO % (test code = 5.4 % 5905-5) EOS % (test code = 1.1 % 713-8) BASO % (test code = 0.4 % 706-2) GRAN MAT x10^3(ANC) 5.76 10*3/uL 1.88-7.09 (test code = 8277392703) IMM GRAN x10^3 (test <0.03 0.00-0.06 code = 8590124066) LYMPH x10^3 (test code 2.61 10*3/uL 1.32-3.29 = 731-0) MONO x10^3 (test code 0.49 10*3/uL 0.33-0.92 = 742-7) EOS x10^3 (test code = 0.10 10*3/uL 0.03-0.39 711-2) BASO x10^3 (test code 0.04 10*3/uL 0.01-0.07 = 704-7) Lab Interpretation Abnormal (test code = 72436-8) [facility] URINALYSIS W SPECIFIC [id number] 21:17:00 Test Item Value Reference Range Interpretation Comments POCT U SP GRAV (test 1.025 mg/dl 1.005-1.025 code = 3255) POCT PH U (test code = 6 mg/dl 5-8 3254) POCT U LEUK EST (test neg Negative - code = 3263) Negative POCT U NIT (test code neg Negative - = 3262) Negative POCT U PROT (test code neg Negative - = 3259) Negative POCT U GLU (test code neg Negative - = 3256) Negative POCT U KETONE (test neg Negative - code = 3258) Negative POCT U UROBILI (test neg 0.2-1 code = 3260) POCT U BILI (test code neg Negative - = 3261) Negative POCT U BLD (test code about 50 Negative - = 3257) Negative POCT U COLOR (test yellow code = 3266) POCT U APPEAR (test clear code = 3267) SUSAN (test code = SUSAN) accurate development and interpretation of all internal controls Lab Interpretation Abnormal (test code = 70891-5) [facility] 12 [id number] 20:17:05 Test Item Value Reference Range Interpretation Comments Ventricular rate (test code = 253) Atrial rate (test code = 255) DC interval (test code = 266) QRSD interval (test code = 260) QT interval (test code = 264) QTC interval (test code = 265) P axis 1 (test code = 267) QRS axis 1 (test code = 268) T wave axis (test code = 270) EKG impression (test ^^^ Poor data quality, code = 273) interpretation may be adversely affected-Normal sinus rhythm-Possible Left atrial enlargement-Borderline ECG-No previous ECGs available- [facility] 12 [id number] 20:17:05 Test Item Value Reference Range Interpretation Comments Ventricular rate (test code = 253) Atrial rate (test code = 255) DC interval (test code = 266) QRSD interval (test code = 260) QT interval (test code = 264) QTC interval (test code = 265) P axis 1 (test code = 267) QRS axis 1 (test code = 268) T wave axis (test code = 270) EKG impression (test ^^^ Poor data quality, code = 273) interpretation may be adversely affected-Normal sinus rhythm-Possible Left atrial enlargement-Borderline ECG-No previous ECGs available- [facility] [Presence] in Respiratory specimen by FEDERICO with probe [id number] 16:23:10 Test Item Value Reference Range Interpretation Comments SARS-CoV-2 (COVID-19) RNA Not detected Not-Detected [Presence] in Respiratory specimen by FEDERICO with probe detection (test code = 39068-3) Whether patient is employed in a healthcare setting (test code = 93494-5) Whether the patient has symptoms related to condition of interest (test code = 28968-8) Patient was hospitalized because of this condition (test code = 67317-3) Whether the patient was admitted to intensive care unit (ICU) for condition of interest (test code = 52916-0) Whether patient resides in a congregate care setting (test code = 72743-0) [id number] 07:17:00 Test Item Value Reference Range Interpretation Comments Chemistry (test code 140 mmol/L 136-145 N = NA-T) Chemistry (test code 4.6 mmol/L 3.5-5.1 N = K-T) Chemistry (test code 104 mmol/L 98-107 N = CL) Chemistry (test code 32 mmol/L 22-29 H = CO2) Chemistry (test code 9 mmol/L 10-20 L = ANGP) Chemistry (test code 16 mg/dL 9.8-20.1 N = BUN) Chemistry (test code 0.78 mg/dL 0.6-1.1 N = CREATT) Chemistry (test code 77 Referen ce Range for = EGFRMDRD) Estimated GFR: Greater than 90 mL/min/ 1.73 m2NOTE:The MDRD equation has no t been validated for u se with theelderly (ove r 70 years of age), women, patients with serious comorbi d condition or pe rsons with extremes o fbody size, muscle ma ss, or nutritional sta tus. Chemistry (test code 107 mg/dL 70-105 H = GLU-T) Chemistry (test code 9.9 mg/dL 7.8-10.44 N = CA) Comment purple 3.[id number] 07:05:00 Test Item Value Reference Range Interpretation Comments Hematology (test code = WBCT) 7.3 thou/uL 4.8-10.8 N Hematology (test code = RBCT) 4.65 mill/uL 4.20-5.40 N Hematology (test code = HGBT) 15.4 g/dL 12.0-16.0 N Hematology (test code = HCTT) 46.3 % 36.0-47.0 N Hematology (test code = MCV) 99.6 fl 81.0-99.0 H Hematology (test code = MCH) 33.1 pg 27.0-31.0 H Hematology (test code = MCHC) 33.2 g/dL 32.0-36.0 N Hematology (test code = RDW) 12.4 % 11.5-14.5 N Hematology (test code = PLTT) 216 thou/uL 130-400 N Hematology (test code = MPV) 7.6 fL 7.4-10.4 N Comment purple 3."
[2022-03-28] MEDS ORDERED: DIAZEPAM 5 MG TABLET ONE (11:06)
[2022-03-28] MEDS ORDERED: ONDANSETRON 4 MG/2 ML VIAL ONE (11:07)
[2022-03-28] MEDS ORDERED: KETOROLAC 30 MG/ML INJ ONE (11:07)
[2022-03-28] MEDS ORDERED: MORPHINE 4 MG/ML SYR ONE (11:11)
[2022-03-28 11:12] LABS: Absolute Lymphocytes (CBC) 2.5 K/uL (0.7-4.9); Hematocrit 42.8 % (36.0-45.0); Lymphocytes % 26.7 % (15.3-44.8); MCV 92.8 fL (80-100); MPV 7.6 fL (7.6-11.3); RBC Red Blood Cell Count 4.61 M/uL (3.86-4.86)
[2022-03-28 11:16] LABS: Protime INR 0.9
[2022-03-28 11:36] LABS: Albumin 3.3 g/dL (3.4-5.0); Bilirubin Direct 0.1 mg/dL (0-0.2); Bilirubin Total 0.3 mg/dL (0.2-1.0); Magnesium 2.2 mg/dL (1.8-2.4); Potassium 4.1 mmol/L (3.5-5.1); Protein, Total 6.6 g/dL (6.4-8.2); Troponin High Sensitivity 4.1 pg/mL (<58.9)
[2022-03-28] MEDS ORDERED: DIAZEPAM 10 MG/2 ML INJ SYRINGE ONE (12:16)
--- NOTE | 2022-03-28 12:18 | RAD REPORT ---
EXAM DESCRIPTION: CT - Head C Spine Freddy Spencer - 03/28/2022 11:59 am CLINICAL HISTORY: Head and neck injury with chest and abdominal pain status post fall. Head and neck pain . TECHNIQUE: Computed axial tomography of the head and cervical spine was obtained Computed axial tomography of the chest, abdomen and pelvis was obtained. 100 cc Isovue-300 was given intravenously coronal and sagittal reconstruction was performed. All CT scans are performed using dose optimization technique as appropriate and may include automated exposure control or mA/KV adjustment according to patient size. COMPARISON: Several 2021 exams FINDINGS: An intracranial bleed is not seen. Mild low-density areas within periventricular, deep and subcortical white matter likely ischemic changes secondary to small vessel disease The ventricles are normal in caliber. An extra-axial fluid collection is not noted. Fluid within the sinuses is not seen. Chronic right maxillary sinusitis A cervical fracture is not seen. No dislocation is seen. Anterior fusion C3 through C6 A mediastinal hematoma is not noted. A pleural effusion is not present. A lung contusion is not seen. Moderate compression fracture L1 vertebral body estimated approximately 50% The liver, spleen, pancreas, adrenals, kidneys and bladder do not demonstrate a traumatic injury Moderate amount stool within the colon IMPRESSION: No acute intracranial abnormality is seen A cervical fracture is not visualized. If the patient continues have symptoms to suggest intracranial /spinal cord pathology then MRI would be recommended. Moderate compression fracture L1 vertebral body has developed since February 28, 2022. Retropulsion of fracture fragment results in approximately 45% narrowing of thecal sac
--- NOTE | 2022-03-28 12:20 | RAD REPORT ---
EXAM DESCRIPTION: RAD - Pelvis - 03/28/2022 11:21 am CLINICAL HISTORY: Pelvic pain status post injury FINDINGS: No fracture or dislocation is seen. Bones are osteoporotic
--- NOTE | 2022-03-28 12:21 | RAD REPORT ---
EXAM DESCRIPTION: [place] Single View03/28/2022 11:21 am CLINICAL HISTORY: Chest pain COMPARISON: 2018 FINDINGS: The lungs appear clear of acute infiltrate. The heart is normal size IMPRESSION: No acute abnormalities displayed
--- NOTE | 2022-03-28 12:58 | ER ---
Nurse's Notes [facility] Name: Stefani Gonzales Age: 61 yrs Sex: Female : 1960 Arrival Date: 03/28/2022 Time: 10:10 Bed 11 Private MD: Homero Burnett Diagnosis: Wedge compression fracture of first lumbar vertebra-with 45%height loss, with retropulsion;Fall (on) (from) other stairs and steps;Low back pain;Other injury of muscle, fascia and tendon of lower back Presentation: 03/28 10:14 Chief complaint: Patient states: fell a week ago yesterday, she was mopping the floor iw and she fell from a step , she fell backwards on her bottom and her right side , now has pain on right low back and right low abd, was seen in ER that night, had a CT done with no acute findings, was sent home with lidocaine patches and muscle relaxer, then saw her PCP on Saturday and was given toradol shot and prescription for gabapentin 300 and ketorolac 10 mg and methocarbamol 750 mg. none of those meds are helping. 10:14 Acuity: MEAGHAN 3 iw 10:17 Coronavirus screen: At this time, the client does not indicate any symptoms associated iw with coronavirus-19. Ebola Screen: Patient negative for fever greater than or equal to 101.5 degrees Fahrenheit, and additional compatible Ebola Virus Disease symptoms Patient denies exposure to infectious person. Patient denies travel to an Ebola-affected area in the 21 days before illness onset. No symptoms or risks identified at this time. Initial Sepsis Screen: Does the patient meet any 2 criteria? No. Patient's initial sepsis screen is negative. Does the patient have a suspected source of infection? No. Patient's initial sepsis screen is negative. Risk Assessment: Do you want to hurt yourself or someone else? Patient reports no desire to harm self or others. Onset of symptoms was March 20, 2022. 10:17 Method Of Arrival: Wheelchair iw Historical: - Allergies: 10:18 No Known Allergies; iw - PMHx: 10:18 Diabetes mellitus; copd; iw - Immunization history:: Client reports having NOT received the Covid vaccine. - Social history:: Smoking status: Patient reports the use of cigarette tobacco products, Reported history of juuling and/or vaping. Screenin:39 Abuse screen: Denies threats or abuse. Nutritional screening: No deficits noted. ss Tuberculosis screening: No symptoms or risk factors identified. Fall Risk None identified. Assessment: 11:08 Reassessment: No changes from previously documented assessment. bm7 11:39 General: Appears in no apparent distress. uncomfortable, Behavior is calm, cooperative, ss appropriate for age. Pain: Complains of pain in left lower quadrant and right low back and right mid back and lumbar area and right lower quadrant and anterior aspect of right lateral abdomen and posterior aspect of right lateral abdomen. Neuro: No deficits noted. Cardiovascular: No deficits noted. Respiratory: No deficits noted. GI: No deficits noted. No signs and/or symptoms were reported involving the gastrointestinal system. : No deficits noted. No signs and/or symptoms were reported regarding the genitourinary system. EENT: No deficits noted. No signs and/or symptoms were reported regarding the EENT system. Derm: No deficits noted. No signs and/or symptoms reported regarding the dermatologic system. Musculoskeletal: Reports pain in left lower quadrant and right low back and right mid back and lumbar area and right lower quadrant and anterior aspect of right lateral abdomen and posterior aspect of right lateral abdomen. 15:01 Reassessment: Patient and/or family updated on plan of care and expected duration. Pain bm7 level reassessed. Patient is alert, oriented x 3, equal unlabored respirations, skin warm/dry/pink. Vital Signs: 10:17 BP 128 / 72; Pulse 79; Resp 16; Temp 97.9; Pulse Ox 95% on R/A; iw 12:12 BP 105 / 66; Pulse 77; Resp 16; Pulse Ox 100% on R/A; Pain 4/10; ss 12:58 BP 108 / 70; Pulse 68; Resp 16; Pulse Ox 100% on R/A; bm7 14:49 BP 110 / 72; Pulse 80; Resp 16; Pulse Ox 100% on R/A; bm7 ED Course: 10:10 Patient arrived in ED. am2 10:10 Homero Burnett MD is Private Physician. am2 10:16 Vito Elizabeth MD is Attending Physician. malinda 10:17 Triage completed. iw 10:19 Arm band placed on. iw 10:52 Beverley Johnson, MUNA is Primary Nurse. bm7 11:06 Inserted saline lock: 20 gauge in right antecubital area, using aseptic technique. kc6 Blood collected. 11:07 Basic Metabolic Panel Sent. kc6 11:07 CBC with Diff Sent. kc6 11:07 LFT's Sent. kc6 11:07 Magnesium Sent. kc6 11:07 Troponin HS Sent. kc6 11:07 PT-INR Sent. kc6 11:07 NT PRO-BNP Sent. kc6 11:39 Patient has correct armband on for positive identification. Call light in reach. ss 11:39 No provider procedures requiring assistance completed. Initial lab(s) drawn, by me, ss sent to lab. Patient maintains SpO2 saturation greater than 95% on room air. 12:02 Patient moved to OR. ss 12:04 Patient moved back from OR. 15:01 Report given to MUNA lundberg. bm7 15:01 Patient transferred, IV remains in place. bm7 Administered Medications: 11:06 Drug: Ketorolac 15 mg Route: IVP; Site: left antecubital; bm7 15:03 Follow up: Response: No adverse reaction bm7 11:07 Drug: morphine 4 mg Route: IVP; Infused Over: 4 mins; Site: left antecubital; bm7 15:03 Follow up: Response: Pain is decreased bm7 11:07 Drug: Zofran (Ondansetron) 4 mg Route: IVP; Site: right antecubital; bm7 15:03 Follow up: Response: No adverse reaction bm7 11:07 Drug: Valium (diazepam) 5 mg Route: PO; bm7 15:03 Follow up: Response: No adverse reaction bm7 12:12 Drug: Valium (diazepam) 5 mg Route: IVP; Site: right antecubital; ss 15:03 Follow up: Response: No adverse reaction bm7 14:34 Drug: Decadron - Dexamethasone 10 mg Route: IVP; Site: right antecubital; iw 15:02 Follow up: Response: No adverse reaction bm7 Medication: 11:39 VIS not applicable for this client. Outcome: 12:57 ER care complete, transfer ordered by . malinda 15:01 Transferred to [facility]. bm7 15:01 Condition: good 15:01 Discharge instructions given to patient, family, Instructed on the need for transfer, Demonstrated understanding of 15:04 Patient left the ED. bm7 Signatures: Vito Elizabeth MD MD cha Williams, Irene, RN RN iw Smirch, Shelby, RN RN ss Moreno, Amanda am2 McCarthy, Brittany, RN RN bmAshley Concepcion 6
--- NOTE | 2022-03-28 12:59 | EDPHYS ---
Physician Documentation [facility] Name: Stefani Gonzales Age: 61 yrs Sex: Female : 1960 Arrival Date: 03/28/2022 Time: 10:10 Bed 11 Private MD: Homero Burnett ED Physician Vito Elizabeth HPI: 03/28 11:02 This 61 yrs old Female presents to ER via Wheelchair with complaints of Fall malinda Injury - 1 wk ago, Low Back Pain, right side pain. 11:02 Details of fall: The patient fell from a height, down approximately 1 stairs. Onset: malinda The symptoms/episode began/occurred 1 week(s) ago. Associated injuries: The patient sustained injury to the abdomen, decreased range of motion, painful injury, swelling. Severity of symptoms: At their worst the symptoms were moderate, in the emergency department the symptoms are unchanged. The patient has not experienced similar symptoms in the past. Historical: - Allergies: 10:18 No Known Allergies; iw - PMHx: 10:18 Diabetes mellitus; copd; iw - Immunization history:: Client reports having NOT received the Covid vaccine. - Social history:: Smoking status: Patient reports the use of cigarette tobacco products, Reported history of juuling and/or vaping. ROS: 11:03 Constitutional: Negative for fever, chills, and weight loss, Eyes: Negative for injury, malinda pain, redness, and discharge, ENT: Negative for injury, pain, and discharge, Neck: Negative for injury, pain, and swelling, Cardiovascular: Negative for chest pain, palpitations, and edema, Respiratory: Negative for shortness of breath, cough, wheezing, and pleuritic chest pain, : Negative for injury, bleeding, discharge, and swelling, MS/Extremity: Negative for injury and deformity, Skin: Negative for injury, rash, and discoloration, Neuro: Negative for headache, weakness, numbness, tingling, and seizure, Psych: Negative for depression, anxiety, suicide ideation, homicidal ideation, and hallucinations, Allergy/Immunology: Negative for hives, rash, and allergies, Endocrine: Negative for neck swelling, polydipsia, polyuria, polyphagia, and marked weight changes, Hematologic/Lymphatic: Negative for swollen nodes, abnormal bleeding, and unusual bruising. 11:03 Abdomen/GI: Positive for abdominal pain, of the posterior aspect of right lateral abdomen, anterior aspect of right lateral abdomen and right lower quadrant. 11:03 Back: Positive for injury or acute deformity, decreased range of motion, pain at rest, pain with movement, of the lumbar area, right mid back and right low back. Exam: 11:03 Constitutional: This is a well developed, well nourished patient who is awake, alert, malinda and in no acute distress. Head/Face: Normocephalic, atraumatic. Eyes: Pupils equal round and reactive to light, extra-ocular motions intact. Lids and lashes normal. Conjunctiva and sclera are non-icteric and not injected. Cornea within normal limits. Periorbital areas with no swelling, redness, or edema. ENT: Nares patent. No nasal discharge, no septal abnormalities noted. Tympanic membranes are normal and external auditory canals are clear. Oropharynx with no redness, swelling, or masses, exudates, or evidence of obstruction, uvula midline. Mucous membranes moist. Neck: Trachea midline, no thyromegaly or masses palpated, and no cervical lymphadenopathy. Supple, full range of motion without nuchal rigidity, or vertebral point tenderness. No Meningismus. Chest/axilla: Normal chest wall appearance and motion. Nontender with no deformity. No lesions are appreciated. Cardiovascular: Regular rate and rhythm with a normal S1 and S2. No gallops, murmurs, or rubs. Normal PMI, no JVD. No pulse deficits. Respiratory: Lungs have equal breath sounds bilaterally, clear to auscultation and percussion. No rales, rhonchi or wheezes noted. No increased work of breathing, no retractions or nasal flaring. Female : Normal external genitalia. Skin: Warm, dry with normal turgor. Normal color with no rashes, no lesions, and no evidence of cellulitis. MS/ Extremity: Pulses equal, no cyanosis. Neurovascular intact. Full, normal range of motion. Neuro: Awake and alert, GCS 15, oriented to person, place, time, and situation. Cranial nerves II-XII grossly intact. Motor strength 5/5 in all extremities. Sensory grossly intact. Cerebellar exam normal. Normal gait. Psych: Awake, alert, with orientation to person, place and time. Behavior, mood, and affect are within normal limits. 11:03 Abdomen/GI: Inspection: abdomen appears normal, Bowel sounds: normal, Palpation: moderate abdominal tenderness, in the right lower quadrant and left lower quadrant, Liver: no appreciated palpable abnormalities, Hernia: not appreciated. Vital Signs: 10:17 BP 128 / 72; Pulse 79; Resp 16; Temp 97.9; Pulse Ox 95% on R/A; iw 12:12 BP 105 / 66; Pulse 77; Resp 16; Pulse Ox 100% on R/A; Pain 4/10; ss 12:58 BP 108 / 70; Pulse 68; Resp 16; Pulse Ox 100% on R/A; bm7 14:49 BP 110 / 72; Pulse 80; Resp 16; Pulse Ox 100% on R/A; bm7 MDM: 10:16 Patient medically screened. malinda 11:05 Differential diagnosis: strain, fracture, contusion, Herniated disc UTI, UTI. malinda Differential diagnosis: closed head injury, contusion, fracture, multiple trauma, sprain, strain. Data reviewed: vital signs, nurses notes, lab test result(s), EKG, radiologic studies, CT scan, plain films. Data interpreted: community recreation programmer: rate is 79 beats/min, rhythm is regular, Pulse oximetry: on room air is 95 %. Test interpretation: by ED physician or midlevel provider: ECG, plain radiologic studies. Counseling: I had a detailed discussion with the patient and/or guardian regarding: the historical points, exam findings, and any diagnostic results supporting the discharge/admit diagnosis, lab results, radiology results. 03/28 10:48 Order name: Basic Metabolic Panel [facility] [place] 03/28 10:48 Order name: CBC with Diff [facility] [place] 03/28 10:48 Order name: LFT's [facility] [place] 03/28 10:48 Order name: Magnesium [facility] [place] 03/28 10:48 Order name: NT PRO-BNP [facility] [place] 03/28 10:48 Order name: PT-INR [facility] [place] 03/28 10:48 Order name: Troponin HS [facility] [place] 03/28 11:16 Order name: CBC with Automated Diff; Complete Time: 11:47 EDHI 03/28 11:17 Order name: Protime (+INR); Complete Time: 11:47 EDHI 03/28 11:37 Order name: Basic Metabolic Panel; Complete Time: 11:47 EDHI 03/28 11:37 Order name: Liver (Hepatic) Function; Complete Time: 11:47 EDHI 03/28 11:37 Order name: Troponin High Sensitivity; Complete Time: 11:47 EDMS 03/28 11:37 Order name: NT PRO-BNP; Complete Time: 11:47 EDMS 03/28 11:37 Order name: Magnesium; Complete Time: 11:47 EDMS 03/28 10:48 Order name: XRAY Chest (1 view) [facility] [place] 03/28 10:48 Order name: Cardiac monitoring; Complete Time: 11:08 [facility] [place] 03/28 10:48 Order name: EKG - Nurse/Tech; Complete Time: 11:08 [facility] [place] 03/28 10:48 Order name: Pelvis XRAY [facility] [place] 03/28 10:48 Order name: CT Traumagram (Head C Spine CAP W Con) [facility] [place] 03/28 12:19 Order name: CT; Complete Time: 12:54 EDMS 03/28 12:21 Order name: RAD; Complete Time: 12:54 EDMS 03/28 12:22 Order name: RAD; Complete Time: 12:54 EDMS 03/28 10:48 Order name: IV Saline Lock; Complete Time: 11:07 [facility] [place] 03/28 10:48 Order name: Labs collected and sent; Complete Time: 11:07 [facility] [place] 03/28 10:48 Order name: O2 Per Protocol; Complete Time: 11:07 [facility] [place] 03/28 10:48 Order name: O2 Sat Monitoring; Complete Time: 11:07 [facility] [place] Administered Medications: 11:06 Drug: Ketorolac 15 mg Route: IVP; Site: left antecubital; bm7 15:03 Follow up: Response: No adverse reaction bm7 11:07 Drug: morphine 4 mg Route: IVP; Infused Over: 4 mins; Site: left antecubital; bm7 15:03 Follow up: Response: Pain is decreased bm7 11:07 Drug: Zofran (Ondansetron) 4 mg Route: IVP; Site: right antecubital; bm7 15:03 Follow up: Response: No adverse reaction bm7 11:07 Drug: Valium (diazepam) 5 mg Route: PO; bm7 15:03 Follow up: Response: No adverse reaction bm7 12:12 Drug: Valium (diazepam) 5 mg Route: IVP; Site: right antecubital; ss 15:03 Follow up: Response: No adverse reaction bm7 14:34 Drug: Decadron - Dexamethasone 10 mg Route: IVP; Site: right antecubital; iw 15:02 Follow up: Response: No adverse reaction bm7 Disposition Summary: 03/28/22 12:57 Transfer Ordered Transfer Location: [facility] malinda Reason: Higher level of care malinda Condition: Stable malinda Problem: new malinda Symptoms: have improved malinda Accepting Physician: aric donlad(03/28/22 15:04) bm7 Diagnosis - Wedge compression fracture of first lumbar vertebra - with 45%height loss, with malinda retropulsion - Fall (on) (from) other stairs and steps malinda - Low back pain malinda - Other injury of muscle, fascia and tendon of lower back malinda Discharge Instructions: - Discharge Summary Sheet malinda - Acute Back Pain, Adult malinda - Fall Prevention in the Home, Adult malinda - Musculoskeletal Pain malinda - Fall Prevention in the Home, Adult, [id number] malinda Forms: - Medication Reconciliation Form malinda - SBAR form malinda Prescriptions: - Valium 5 mg Oral Tablet - take 1 tablet by ORAL route every 8 hours As needed; 20 tablet; Refills: 0, malinda Product Selection Permitted - Diclofenac Sodium 75 mg Oral tablet,delayed release (DR/EC) - take 1 tablet by ORAL route 2 times per day; 20 tablet; Refills: 0, Product malinda Selection Permitted - Medrol (Richard) 4 mg Oral Tablets, Dose Pack - take 1 tablet by ORAL route as directed - follow package instructions; 1 malinda packet; Refills: 0, Product Selection Permitted - Tylenol-Codeine #3 300 mg-30 mg Oral - take 2 tablet by ORAL route every 6 hours; 24 tablet; Refills: 0, Product malinda Selection Permitted Signatures: Dispatcher [employer] Vito Dozier MD MD cha Williams, Irene, RN RN iw Smirch, Shelby, RN RN ss McCarthy, Brittany, RN RN bm7 Corrections: (The following items were deleted from the chart) 15:04 12:57 [facility] malinda bm7
[2022-03-28] MEDS ORDERED: dexAMETHasone 10 MG/ML VIAL ONE (14:39)
[2022-03-29 21:58] VITALS: TEMP 97.9
[2022-03-29 22:07] VITALS: O2SAT 100
[2022-03-29 22:51] VITALS: BP 108/70
== END 2022-03-28 15:04 | disposition short-term general hospital (02) ==
LOC: ER 10:07
DX: S32.010A Wedge compression fracture of first lumbar vertebra, initial encounter for closed fracture (principal); S39.092A Other injury of muscle, fascia and tendon of lower back, initial encounter; M54.50 Low back pain, unspecified; W10.8XXA Fall (on) (from) other stairs and steps, initial encounter; E11.9 Type 2 diabetes mellitus without complications; J44.9 Chronic obstructive pulmonary disease, unspecified
CPT/HCPCS: 85025; 80048; 36415; 83735; 85610; 80076; 84484; 83880; 70450; 72125; 71260; 74177; 71045; 72170; 99285; Q9967; J3360; J1100; J2405